=== PATIENT | male | born 1990 | race Caucasian/White ===

== ENCOUNTER 2020-02-29 15:30 | Emergency (ER) | payer SELFPAY ==
[~2020-02-29] VITALS: Ht 180.3 cm; Wt 104.3 kg
[2020-02-29 15:41] VITALS: BP 159/95
--- NOTE | 2020-02-29 15:50 | NUR ---
c/o fever, body aches, cough x2 days. per pt, his girlfriend found out she was COVID + today and he has been around her. 02 sat ra 98%, moist cough present. VSS.
--- NOTE | 2020-02-29 15:50 | NUR ---
arjun bright at bedside evaluating pt.
--- NOTE | 2020-02-29 16:00 | NUR ---
FLU/COVID swab collected and sent to lab
[2020-02-29 16:20] VITALS: BP 159/95
--- NOTE | 2020-02-29 16:23 | NUR ---
dPatient discharged with v/s stable. Written and verbal after care instructions given and explained. Patient alert, oriented and verbalized understanding of instructions. Ambulatory with steady gait. All questions addressed prior to discharge. ID band removed. Patient advised to follow up with PMD. Rx of tamiflu, ibuprofen & promethazine given. Patient educated on indication of medication including possible reaction and side effects. Opportunity to ask questions provided and answered.
--- NOTE | 2020-03-01 19:21 | NUR ---
RESULTS GIVEN TO HOUSE SUP AND INFECTION PREVENTION DEANA
== END 2020-02-29 16:28 | disposition home or self-care (01) ==
LOC: EEVIPCON 15:30 → MED 15:30
DX: U07.1 COVID-19 (principal); B34.9 Viral infection, unspecified; I10 Essential (primary) hypertension
CPT/HCPCS: 87804; 99283; U0003

== ENCOUNTER 2020-03-18 15:01 | Emergency (ER) | payer OTHER, SELFPAY ==
--- NOTE | 2020-03-18 15:12 | NUR ---
LEFT WITHOUT BEING SEEN.
== END 2020-03-18 15:12 | disposition left against medical advice (07) ==
LOC: MED 15:01
DX: Z53.21 Procedure and treatment not carried out due to patient leaving prior to being seen by health care provider (principal)

== ENCOUNTER 2020-08-05 04:00 | Emergency (ER) | payer OTHER, SELFPAY ==
[~2020-08-05] VITALS: Ht 177.8 cm; Wt 107.5 kg
[2020-08-05 04:15] VITALS: BP 148/95
--- NOTE | 2020-08-05 04:19 | NUR ---
PT AMBULATED TO BED 06 WITH STEADY GAIT.
--- NOTE | 2020-08-05 04:34 | NUR ---
29 Y/O M PRESENTS TO ED C/O RT WRIST PAIN X 4 DAYS. PT ABLE TO MOVE WRIST LEFT, RIGHT, AND DOWN. PER PT, PAIN IS WORST WHEN WRIST IS MOVED UPWARDS. RADIAL PULSE PRESENT. ABLE TO MOVE FINGERS FREELY. RR EVEN AND UNLABORED. LUNG SOUNDS CLEAR. BED LOCKED AND IN LOWEST POSITION, SIDE RAIL UPX1. WILL CONTINUE TO MONITOR. MHX: HTN NKA
--- NOTE | 2020-08-05 06:00 | NUR ---
MD ORTZI AT BEDSIDE
--- NOTE | 2020-08-05 06:22 | NUR ---
SPLINT TO TO PLACED TO RIGHT THUMB
[2020-08-05 06:23] VITALS: BP 132/87
== END 2020-08-05 06:49 | disposition home or self-care (01) ==
LOC: MED 04:00
DX: M25.531 Pain in right wrist (principal); I10 Essential (primary) hypertension; X50.0XXA Overexertion from strenuous movement or load, initial encounter; Y93.89 Activity, other specified; Y92.89 Other specified places as the place of occurrence of the external cause; Y99.8 Other external cause status
CPT/HCPCS: 73110; 99283

== ENCOUNTER 2020-09-22 07:53 | Emergency (ER) | payer OTHER, SELFPAY ==
[~2020-09-22] VITALS: Ht 180.3 cm; Wt 104.3 kg
[2020-09-22 07:56] VITALS: BP 130/74
--- NOTE | 2020-09-22 08:00 | NUR ---
TO LOBBY A/W BED AMBULATORY
--- NOTE | 2020-09-22 08:10 | NUR ---
SEEN AND EXAMINED BY JAMIL WITH ORDER, CARRIED OUT
--- NOTE | 2020-09-22 08:40 | NUR ---
CONSENT FOR TETANUS VACCINE SIGNED AND CONSENTED, GIVEN IM , TOLERATED WELL.
--- NOTE | 2020-09-22 08:45 | NUR ---
Patient has laceration to HEAD. Dr. BOOGIE applied STAPLE using sterile technique. Edges well approximated. Site cleansed with NS. No bleeding noted. Pt tolerated well.
--- NOTE | 2020-09-22 08:50 | NUR ---
IRRIGATED LACERATION TO RIGHT UPPER HEAD WITHOUT ANY ISSUES
[2020-09-22 08:59] VITALS: BP 130/74
--- NOTE | 2020-09-22 08:59 | NUR ---
Patient discharged with v/s stable. Written and verbal after care instructions given and explained. Patient verbalized understanding. Ambulatory with steady gait. All questions addressed prior to discharge. Advised to follow up with PMD.
== END 2020-09-22 08:59 | disposition home or self-care (01) ==
LOC: MED 07:53
DX: S01.91XA Laceration without foreign body of unspecified part of head, initial encounter (principal); W22.8XXA Striking against or struck by other objects, initial encounter; Y93.89 Activity, other specified; Y92.810 Car as the place of occurrence of the external cause; Y99.8 Other external cause status
CPT/HCPCS: 90471; 90715; 99283

== ENCOUNTER 2020-09-29 17:15 | Emergency (ER) | payer OTHER ==
[~2020-09-29] VITALS: Ht 180.3 cm; Wt 104.3 kg
[2020-09-29 17:32] VITALS: BP 142/78
--- NOTE | 2020-09-29 17:40 | NUR ---
NO NEED NURSING CARE
== END 2020-09-29 17:57 | disposition home or self-care (01) ==
LOC: MED 17:15
DX: S05.41XD Penetrating wound of orbit with or without foreign body, right eye, subsequent encounter (principal); I10 Essential (primary) hypertension; X58.XXXD Exposure to other specified factors, subsequent encounter
CPT/HCPCS: 99281

== ENCOUNTER 2023-08-11 17:14 | Emergency (ER) | payer OTHER ==
[~2023-08-11] VITALS: Ht 180.3 cm; Wt 99.8 kg
[~2023-08-11 17:14] MED LIST: ALBU6.7H6 IH; AMOX-999 PO; BENZ-196 PO; HYDR12.51 PO; ROB PO
[2023-08-11 17:17] VITALS: BP 146/80; PULSE 73; RESP 15; TEMP 98.2; O2SAT 95
[2023-08-11] MEDS ORDERED: BENZ200C4 PO (20:15)
[2023-08-11] MEDS ORDERED: ALBU0.0912 IH (20:15)
[2023-08-11] MEDS ORDERED: PRED20TA5 PO (20:15)
[2023-08-11] MEDS ORDERED: [UNRECOGNIZED DRUG - CODE] PO (20:15)
[2023-08-11 20:23] LABS: FLU A ANTIGEN negative (NEGATIVE); FLU B ANTIGEN NEGATIVE (NEGATIVE)
== END 2023-08-11 21:35 | disposition home or self-care (01) ==
LOC: MED 17:14
DX: J06.9 Acute upper respiratory infection, unspecified (principal); Z20.822 Contact with and (suspected) exposure to COVID-19; J45.909 Unspecified asthma, uncomplicated; I10 Essential (primary) hypertension; Z79.899 Other long term (current) drug therapy
CPT/HCPCS: 71046; 99284

== ENCOUNTER 2024-02-12 23:45 | Emergency (ER) | payer OTHER ==
[~2024-02-12] VITALS: Ht 180.3 cm; Wt 97.5 kg
[~2024-02-12 23:45] MED LIST changes: +ALBU0.0912 IH; +BENZ200C4 PO; +PRED20TA5 PO; +[UNRECOGNIZED DRUG - CODE] PO
[2024-02-13 00:20] VITALS: BP 141/85; PULSE 83; RESP 18; TEMP 98.1; O2SAT 97
[2024-02-13 00:33] VITALS: O2SAT 98
[2024-02-13 00:59] LABS: FLU A ANTIGEN negative (NEGATIVE); FLU B ANTIGEN NEGATIVE (NEGATIVE)
[2024-02-13] MEDS: ALBUTEROL SULFATE/IPRATROPIU 3 ML SOL IH ONE (01:45)
[2024-02-13] MEDS ORDERED: ROBAC PO (01:50)
[2024-02-13] MEDS ORDERED: ALBU0.0912 IH (01:50)
[2024-02-13] MEDS ORDERED: AZIT250T4 PO (01:50)
== END 2024-02-13 02:03 | disposition home or self-care (01) ==
LOC: MED 23:45
DX: J20.9 Acute bronchitis, unspecified (principal); Z20.822 Contact with and (suspected) exposure to COVID-19; J45.909 Unspecified asthma, uncomplicated; I10 Essential (primary) hypertension; Z79.899 Other long term (current) drug therapy
CPT/HCPCS: 71045; 87081; 94640; 99284

== ENCOUNTER 2024-02-18 21:21 | Emergency (ER) | payer OTHER ==
[~2024-02-18] VITALS: Ht 180.3 cm; Wt 90.7 kg
[~2024-02-18 21:21] MED LIST changes: +AZIT250T4 PO; +ROBAC PO
[2024-02-18 21:48] VITALS: BP 137/74; PULSE 65; RESP 18; TEMP 98; O2SAT 98
[2024-02-18 22:41] VITALS: O2SAT 98
== END 2024-02-18 23:26 | disposition home or self-care (01) ==
LOC: MED 21:21
DX: F31.9 Bipolar disorder, unspecified (principal); J45.909 Unspecified asthma, uncomplicated; I10 Essential (primary) hypertension; Z79.1 Long term (current) use of non-steroidal anti-inflammatories (NSAID); Z79.2 Long term (current) use of antibiotics; Z79.899 Other long term (current) drug therapy
CPT/HCPCS: 99281

== ENCOUNTER 2024-02-21 15:55 | Emergency (ER) | payer OTHER ==
[~2024-02-21] VITALS: Ht 180.3 cm; Wt 97.5 kg
[2024-02-21 16:03] VITALS: BP 158/89; PULSE 69; RESP 18; TEMP 98; O2SAT 97
== END 2024-02-21 17:22 | disposition home or self-care (01) ==
LOC: MED 15:55
DX: F31.9 Bipolar disorder, unspecified (principal); I10 Essential (primary) hypertension; J45.909 Unspecified asthma, uncomplicated; Z79.1 Long term (current) use of non-steroidal anti-inflammatories (NSAID); Z79.2 Long term (current) use of antibiotics; Z79.899 Other long term (current) drug therapy
CPT/HCPCS: 99281

== ENCOUNTER 2024-04-30 22:04 | Emergency (ER) | payer OTHER ==
[~2024-04-30] VITALS: Ht 180.3 cm; Wt 86.2 kg
[2024-04-30 22:50] VITALS: BP 142/99; PULSE 60; RESP 18; TEMP 97.4; O2SAT 99
[2024-04-30 23:54] LABS: BASOPHILS # (AUTO) 0.1 K/uL (0.00-0.22); EOSINOPHILS # (AUTO) 0.1 K/uL (0-0.4); EOSINOPHILS % (AUTO) 1.8 % (0.0-4.0); HEMATOCRIT 47.5 % (36-52); LYMPHOCYTES # (AUTO) 2.2 K/uL (2.0-11.5); LYMPHOCYTES % (AUTO) 28.9 % (20.5-51.1); MEAN CORPUSCULAR HEMOGLOBIN 30 pg (27-31); MEAN CORPUSCULAR HGB CONC 34 g/dL (33-37); MONOCYTES # (AUTO) 0.6 K/uL (0.8-1.0); NEUTROPHILS # (AUTO) 4.6 K/uL (1.8-7.7); NEUTROPHILS % (AUTO) 60.3 % (42.2-75.2); PLATELET COUNT (AUTO) 277 K/uL (140-450); RED BLOOD CELL COUNT(AUTO) 5.28 MIL/uL (4.20-6.10); RED CELL DISTRIBUTION WIDTH 13.6 % (11.6-13.7); WHITE BLOOD COUNT (AUTO) 7.6 K/uL (4.8-10.8)
[2024-05-01 00:27] LABS: ANION GAP 13.3 (8-16); CALCIUM 10.3 mg/dL (8.5-10.1); CARBON DIOXIDE 28.2 mmol/L (21-32); CREATININE 0.8 mg/dL (0.6-1.3); POTASSIUM 4.5 mmol/L (3.5-5.1); TOTAL BILIRUBIN 0.5 mg/dL (0.0-1.0); TOTAL PROTEIN, SERUM 7.6 g/dL (6.4-8.2)
[2024-05-01 00:32] LABS: ALBUMIN 4.1 g/dL (3.4-5.0)
[2024-05-01 02:19] VITALS: BP 142/99; PULSE 60; RESP 18; TEMP 97.4; O2SAT 99
== END 2024-05-01 02:18 | disposition home or self-care (01) ==
LOC: MED 22:04
DX: R51.9 Headache, unspecified (principal); R06.02 Shortness of breath; R07.9 Chest pain, unspecified; J45.909 Unspecified asthma, uncomplicated; I10 Essential (primary) hypertension; F31.9 Bipolar disorder, unspecified; Z79.899 Other long term (current) drug therapy
CPT/HCPCS: 36415; 71045; 80053; 80178; 85025; 93005; 99285

== ENCOUNTER 2024-07-15 19:20 | Emergency (ER) | payer OTHER ==
[~2024-07-15] VITALS: Ht 175.3 cm; Wt 95.3 kg
[2024-07-15 19:27] VITALS: BP 155/94; PULSE 70; RESP 16; TEMP 97.7; O2SAT 97
[2024-07-15] MEDS ORDERED: PROP10TA28 PO (20:03)
[2024-07-15 20:11] VITALS: BP 176/116; PULSE 76; RESP 16; O2SAT 99
== END 2024-07-15 20:12 | disposition home or self-care (01) ==
LOC: MED 19:20
DX: R51.9 Headache, unspecified (principal); F41.9 Anxiety disorder, unspecified; F32.A Depression, unspecified; F17.210 Nicotine dependence, cigarettes, uncomplicated; J45.909 Unspecified asthma, uncomplicated; I10 Essential (primary) hypertension; F90.9 Attention-deficit hyperactivity disorder, unspecified type; Z76.0 Encounter for issue of repeat prescription; Z79.899 Other long term (current) drug therapy
CPT/HCPCS: 99281; 99283